=== PATIENT | female | born 1950 | race Caucasian/White ===

== ENCOUNTER 2017-11-11 13:03 | Outpatient (CLI) | payer MEDICARE, BC ==
--- NOTE | 2017-11-11 13:59 | RAD ---
LUMBAR SPINE THREE VIEWS: HISTORY: Postop followup. TECHNIQUE: Lateral views obtained in neutral, flexion, and extension positions. FINDINGS: The lumbar vertebrae maintain height and alignment. There is loss of disk space at L4-L5 and at L5-S 1. There is slight posterior listhesis at L5-S1. There is hypertrophic degenerative spurring, most prominent at L4, L5, and S1. No compression deformity. Mild facet hypertrophy. No significant aguayo ge in alignment with flexion or extension. IMPRESSION: Degenerative changes of the lumbar spine, as described. POS: [facility]
== END 2017-11-11 13:04 | disposition home or self-care (01) ==
LOC: TBSIIMAG 13:03
PROVIDERS: ATTEND Neurological Surgery
DX: M54.5 Low back pain (principal); M43.17 Spondylolisthesis, lumbosacral region; M48.8X7 Other specified spondylopathies, lumbosacral region; M48.8X6 Other specified spondylopathies, lumbar region
CPT/HCPCS: 72100

== ENCOUNTER 2017-12-09 11:01 | Day surgery (SDC) | payer MEDICARE, BC ==
[2017-12-07 10:50] VITALS: BMI 30.2
--- NOTE | 2017-12-08 13:54 | HP ---
CHIEF COMPLAINT: Lumbar back pain. HISTORY OF PRESENT ILLNESS: This is a 67-year-old female who reports to our office after a 5-year hi atus for reevaluation of lumbar back pain. The patient states that after we saw her her symptoms imp roved with injections and medications. About 8 months ago she was able to go off all of her medicati ons and she was doing well. About 3 weeks ago, she was changing her sheets and felt a twinge and sin ce then she has just felt worse and worse. She says that the pain in her lumbar back radiates into h er right glute down the back of her leg and the lateral lower extremity. The patient states that the re is numbness and tingling in the same distribution. The patient has seen Pain Management and she h as been on a Medrol Dosepak and that only helped for a few days. She has also been taking hydrocodon e. The MRI was very painful and she was in the ER last , which they gave her more steroids w ithout much benefit. The patient denies any bowel or bladder dysfunction. Her pain is 9/10. REVIEW OF SYSTEMS: Ten point review of systems has been completed and is negative other than stated above in the HPI. PAST MEDICAL HISTORY: Migraines, hypertension, gout, leg pain, anxiety, allergies, and hyperlipidemi a. PAST SURGICAL HISTORY: Tubal in 1974, hysterectomy in 1986, right knee scope in 1999. FAMILY HISTORY: Father is , had cardiovascular disease and a stroke. Mother is , phani ng cancer, nonsmoker with hypertension. Children are alive. SOCIAL HISTORY: The patient is a nonsmoker. She is with 2 children. She is a retired seams tress and occasionally consumes alcohol. MEDICATIONS: Nortriptyline, propranolol, amlodipine, hydrocodone. ALLERGIES: VICODIN gives her nightmares. PHYSICAL EXAMINATION: CONSTITUTIONAL: Well-appearing, well-nourished, alert. NEUROLOGICAL: Mental status; oriented to time, place, person. Normal attention span and concentrati on. Speech is spontaneous and fluent. Comprehension is intact. Content is appropriate. Normal fun d of knowledge. Cranial nerves: Pupils equal, round, reactive to light. Extraocular movements inta ct. Hearing is intact. MOTOR EXAM: Muscle strength is normal in lower extremities. Muscle tone and bulk normal in lower ex tremities, 5/5 bilateral strength in IP, KE, KF, DS, EHL, 4+/5 in the right plantar flexion, S1 radic ulopathy, positive single leg raise on the right, rotation of bilateral hips normal. Deep tendon ref lexes 2+ bilateral, 1+ ankle bilateral. SENSORY: Light touch intact. GAIT AND STATION: Sit to stand, slow normal gait. RESPIRATORY: Normal work of breathing on room air. CARDIOVASCULAR: Regular rate and rhythm. Normal S1, S2. SKIN: No rashes or lesions on exposed skin. PSYCHIATRIC: Normal mood and affect. IMAGING: Lumbar MRI L3 through L4 spinal stenosis at L4-L5 through S1 right herniated nucleus pulpos us. ASSESSMENT: Lumbar back pain, lumbar radiculopathy and herniated nucleus pulposus, lumbar. PLAN: Dr. Head has offered a microdiskectomy at L5-S1. We have obtained consent. We have disc ussed the indications, risks, benefits, alternatives and expected results from surgery. The risks di scussed included, but were not limited to bleeding, infection, CSF leak, nerve damage, weakness, inco ntinence, cauda equina injury, arachnoiditis, paralysis, ventilator dependence, wheelchair dependence , loss of vision, cardiopulmonary complications of anesthesia or . Long-term complications disc ussed included, but were not limited to degradation of surrounding disks and the need for further agustina herman. The patient states that she understands the risks of surgery and is willing to move forward.
[2017-12-09] MEDS ORDERED: Ondansetron HCl/PF 4 MG/2 ML Vial ONE (11:15)
[2017-12-09] MEDS ORDERED: PHENYLEPHRINE-NS 100 MCG/ML 10 ML SYRINGE ONE (11:15)
[2017-12-09] MEDS ORDERED: Lidocaine 1% PF 5 ML VIAL ONE (11:15)
[2017-12-09] MEDS ORDERED: Ketorolac Tromethamine 30 MG/ML VIAL ONE (11:15)
[2017-12-09] MEDS ORDERED: PROPOFOL 200 MG/20 ML VIAL ONE (11:15)
[2017-12-09] MEDS ORDERED: Glycopyrrolate 0.2 MG/ML 5 ML SYRINGE ONE (11:15)
[2017-12-09] MEDS ORDERED: Dexamethasone 20 MG/5 ML VIAL ONE (11:15)
[2017-12-09] MEDS ORDERED: ePHEDrine/0.9% NaCl/PF SYRINGE 50 mg/10 ml ONE (11:15)
[2017-12-09] MEDS ORDERED: Thrombin 5000 UNITS/5 ML VIAL ONE (14:08)
[2017-12-09] MEDS ORDERED: Sodium Chloride 0.9% 10 ML ONE (14:08)
[2017-12-09] MEDS ORDERED: Bupivacaine HCl 0.5%/Epinephrine 1:200,000/PF 30 ml Vial ONE (14:08)
[2017-12-09] MEDS ORDERED: CEFAZOLIN/Water 2 GM/20 ML SYRINGE ONE ×2 (14:10→18:57)
[2017-12-09] MEDS ORDERED: Midazolam HCl 2 mg/2 ml Vial ONE (14:12)
[2017-12-09] MEDS ORDERED: Fentanyl 100 MCG/2 ML VIAL ONE ×2 (15:19→17:37)
[2017-12-09] MEDS ORDERED: SUGAMMADEX SODIUM 500 MG/5 ML VIAL ONE (17:07)
--- NOTE | 2017-12-09 20:32 | OP ---
DATE OF PROCEDURE: 12/09/2017 NEUROSURGERY OPERATIVE NOTE SURGEON: Phillip Head M.D. OUTREACH ASSISTANT: Dotty Quinonez PA-C. PREOPERATIVE INDICATION: Treat pain, prevent neurological deterioration. PREOPERATIVE DIAGNOSES: Intervertebral disk herniation L5-S1 with bilateral lateral recess stenosis and right greater than left S1 radiculopathy. POSTOPERATIVE DIAGNOSES: Intervertebral disk herniation L5-S1 with bilateral lateral recess stenosis and right greater than left S1 radiculopathy. OPERATIVE PROCEDURE: Decompressive laminectomy, medial facetectomy, foraminotomy, right-sided microd iskectomy, all at L5-S1. PREOPERATIVE MEDICATION: Ancef 2 grams IV. DRAIN NUMBER: Zero. DRAIN TYPE: None. OPERATIVE DICTATION: The patient was brought to the operating room. General endotracheal anesthesia was induced. The patient was positioned on the operating table with her chest and hips supported by gel-filled chest rolls. A lateral fluoro radiograph was used to plan our incision. The lumbar skin was sterilely prepped and draped. We opened our incision with a 10 blade knife and controlled bleed ing with bipolar and monopolar cautery. We used monopolar cautery to dissect through subcutaneous ti ssues to the thoracodorsal fascia. We incised the fascia in the midline and reflected the paraspinal muscles off the spinous process and lamina of L5 and S1. A self-retaining retractor was placed and lateral fluoro radiograph confirmed the level upon which we were operating. We then removed the spin ous process of L5 and using Kerrison rongeurs, fashioned a laminectomy at L5-S1. We widened our lami nectomy defect by performing medial facetectomies. We identified the common thecal sac and the S1 ne rve roots and decompressed those nerve roots in the lateral recess. We performed foraminotomies over the exiting S1 nerve roots as well. We then brought the operative microscope in the field. Under microscopic magnification using microsurgical techniques, we carefully retracted the nerve root medially on the right side. Under the S1 nerve root, we found the ventral disk herniation. We inci sed the herniated portion of the disk. We removed loose disk fragments with angled curettes and pitu itary rongeurs. At the completion of the diskectomy, the right-sided S1 nerve root was no longer und er any stretch. The left S1 nerve root was well decompressed with our laminectomy. We looked undern eath it and found a small loose disk fragment and removed that. We did not open the annulus or the d isk from the left side. We irrigated copiously with bacitracin irrigation. We infused local anesthe tic in the paraspinal muscles. We closed the wound in anatomic layers. We applied a sterile dressin g. This was a clean case and no contamination.
== END 2017-12-09 20:15 | disposition home or self-care (01) ==
LOC: SDC 11:01
PROVIDERS: ATTEND Neurological Surgery
PROC: 01NB0ZZ Release Lumbar Nerve, Open Approach (ICD-10-PCS; principal; 2017-12-09)
PROC: 0SB40ZZ Excision of Lumbosacral Disc, Open Approach (ICD-10-PCS; 2017-12-09)
DX: M48.07 Spinal stenosis, lumbosacral region (principal); M51.17 Intervertebral disc disorders with radiculopathy, lumbosacral region; G43.909 Migraine, unspecified, not intractable, without status migrainosus; I10 Essential (primary) hypertension; M10.9 Gout, unspecified; F41.9 Anxiety disorder, unspecified; E78.5 Hyperlipidemia, unspecified; Z79.82 Long term (current) use of aspirin; Z79.1 Long term (current) use of non-steroidal anti-inflammatories (NSAID); Z79.899 Other long term (current) drug therapy; Z88.5 Allergy status to narcotic agent; Z88.8 Allergy status to other drugs, medicaments and biological substances
CPT/HCPCS: 76001; 96374; 96375; A4216; J0670; J1100; J1885; J2001; J2250; J2405; J2704; J3010; J3370; J3490

== ENCOUNTER 2019-10-12 10:07 | Outpatient (CLI) | payer MEDICARE, BC ==
--- NOTE | 2019-10-12 11:43 | RAD ---
LUMBAR SPINE 5 VIEWS: HISTORY: Intervertebral disk disorder with radiculopathy, back pain radiating down the right leg to foot. COMPARISON: 02/09/2013. FINDINGS: Exam includes flexion and extension standing lateral views. Disk space narrowing, particularly at L4 -L5 and L5-S1. No evidence for abnormal translation between flexion and extension. Minimal generali zed dextroscoliosis of the lumbar vertebral column and levoscoliosis of the upper lumbar lower thorac ic vertebral column. IMPRESSION: Lumbar spondylosis with disk-osteophytosis and disk space narrowing, particularly at L4-L5 and L5-S1. No abnormal translation between flexion and extension. Scoliotic changes as above. POS: [facility]
== END 2019-10-12 10:08 | disposition home or self-care (01) ==
LOC: TBSIIMAG 10:07
PROVIDERS: ATTEND Physician Assistant Medical
DX: M51.16 Intervertebral disc disorders with radiculopathy, lumbar region (principal); M47.26 Other spondylosis with radiculopathy, lumbar region; M51.37 Other intervertebral disc degeneration, lumbosacral region; M25.78 Osteophyte, vertebrae; M41.9 Scoliosis, unspecified
CPT/HCPCS: 72120

== ENCOUNTER 2019-10-30 14:16 | Outpatient (CLI) | payer MEDICARE, BC ==
--- NOTE | 2019-10-30 16:20 | MRI ---
LUMBAR SPINE MRI WITHOUT IV CONTRAST: HISTORY: Radiculopathy, low back pain, right leg pain, difficult walking long distances, prior surgery. FINDINGS: Conus medullaris region appears unremarkable. There are generalized disk desiccation changes and lig ament and facet hypertrophic changes. Minimal type I end plate changes at L5-S1 with some mild marrow edema. T12-L1 disk: No significant stenosis. L1-L2 disk: Very slight thinning of the lateral recesses. L2-L3 disk: Mild central canal and moderate lateral recess stenosis with associated annular fissure and mild to moderate bilateral foraminal stenosis. L3-L4 disk: Severe central canal and lateral recess stenosis and moderate bilateral foraminal stenos is. L4-L5 disk: Mild central canal and moderate lateral recess stenosis and bilateral foraminal stenosis , worse on the left side. L5-S1 disk: Postoperative change at this level. Prominent central protrusion with some mild bilater al recess narrowing and severe bilateral foraminal stenosis worse on the left side. IMPRESSION: Variable severity multilevel canal, lateral recess, and foraminal stenosis. Postoperative changes at L5-S1. Minimal type I end plate changes at L5-S1. POS: [facility]
== END 2019-10-30 14:17 | disposition home or self-care (01) ==
LOC: EDBD → TBSIIMAG 14:16
PROVIDERS: ATTEND Neurological Surgery
DX: M51.16 Intervertebral disc disorders with radiculopathy, lumbar region (principal); M48.062 Spinal stenosis, lumbar region with neurogenic claudication; M48.07 Spinal stenosis, lumbosacral region
CPT/HCPCS: 72148

== ENCOUNTER 2020-03-13 06:39 | Outpatient (CLI) | payer MEDICARE, BC ==
[2020-03-13 14:03] LABS: Hemoglobin 13.6 g/dL (12.0-16.0); Mean Corpuscular HGB CONC 31.7 G/DL (32.0-36.0); Mean Corpuscular Hemoglobin 29.2 PG (27.0-33.0); Mean Corpuscular Volume 92.3 fl (80.0-100.0); Mean Platelet Volume 10.5 fl (7.4-10.4); Platelet Count 273 10x3/uL (130-400); RBC Distribution Width 13.2 % (11.5-14.5); Red Blood Cell (RBC) Count 4.65 10x6/uL (3.90-5.20); White Blood Cell (WBC) Count 7.5 10x3/uL (4.5-11.0)
[2020-03-13 14:32] LABS: PTT 28.7 sec (22.0-33.0); Prothrombin Time 10.3 sec (9.5-12.1)
[2020-03-13 22:14] LABS: SARS-CoV-2 MS2 Positive; SARS-CoV-2 N Gene Negative; SARS-CoV-2 S Gene Negative; SARS-CoV-2 by NAA Not Detected (NotDetected); SARS-CoV-2 orf1ab Negative
== END 2020-03-13 06:40 | disposition home or self-care (01) ==
LOC: LABBT 06:39
PROVIDERS: ATTEND Neurological Surgery
DX: Z01.812 Encounter for preprocedural laboratory examination (principal); M48.061 Spinal stenosis, lumbar region without neurogenic claudication; Z20.828 Contact with and (suspected) exposure to other viral communicable diseases
CPT/HCPCS: 85027; 85610; 85730; U0003; 87635

== ENCOUNTER 2020-03-13 12:00 | Inpatient (IN) | payer MEDICARE, BC ==
--- NOTE | 2020-03-17 13:26 | HP ---
REASON FOR H AND P: Surgery on 03/18/2020, case #[id number]. HISTORY OF PRESENT ILLNESS: Ms. Lira is a 69-year-old female with a chief complaint of lower back and right leg pain. She had a right microdiskectomy at L5-S1 on 12/09/2017. She developed new radiculopathy pain in her right leg about one year ago radiating into her right gluteal muscle, hamstring, lateral calf and anterior foot. She could only walk about 50 feet before she has to offload. She has tried medications, physical therapy and spinal epidural injections with no lasting relief. Denies bladder or bowel dysfunction. REVIEW OF SYSTEMS: CONSTITUTIONAL: Denies fever or chills. ENT: Denies change in vision or hearing. CARDIAC: Denies chest pain, shortness of breath, or diaphoresis. PULMONARY: Denies shortness of breath, cough, or hemoptysis. GI: Denies fecal incontinence, abdominal pain, nausea, vomiting, diarrhea, change in stool formation and consistency. : Denies urinary incontinence, trouble with urination, frequency of urination, bloody urine. SKIN: Denies skin rash, bruising, bleeding, skin masses. MUSCULOSKELETAL: As per history of present illness. NEUROLOGIC: As per history of present illness. PSYCHOLOGIC: Denies anxiety, depression, behavior changes. MEDICAL HISTORY: Migraines, hypertension, gout, knee pain, arthritis. SURGICAL HISTORY: Tubal ligation in 1974, hysterectomy in 1986, right cartilage knee surgery in 1999, right L5-S1 microdiskectomy in 2018. HOSPITALIZATIONS: As above surgeries. FAMILY HISTORY: Father , 66 years old, CVA diagnosed with stroke. Mother , lung cancer, nonsmoker. SOCIAL HISTORY: Nonsmoker. Occasional alcohol use. Denies illicit drug use. MEDICATIONS: 1. Tramadol 50 mg. 2. Zanaflex 4 mg. 3. Amlodipine 10 mg. 4. Celebrex 200 mg. 5. Nortriptyline 50 mg. 6. Gabapentin 300 mg. 7. Propranolol 120 mg. ALLERGIES: VICODIN, SIDE-EFFECT NIGHTMARES. PHYSICAL EXAMINATION: VITAL SIGNS: Weight is 185 pounds, height is 64 inches, BMI is 31.75. HEENT: Pupils are equal. Extraocular movements are intact. NECK: Soft, supple. No masses are noted. Range of motion is intact and nonpainful. NEUROLOGIC: Awake, alert, and oriented x3. Memory, attention, fund of knowledge normal. Cranial nerves grossly intact. Gait and station are normal. Motor exam: Mild EHL weakness on the right. There is normal strength in the iliopsoas, quadriceps, hamstrings, anterior tib, gastrocnemius and toe flexors. Sensory exam; slightly decreased, right L5 and S1. IMAGING STUDIES: MRI of the lumbar spine, stenosis at L3-4 and L4-5. Severe foraminal collapse at L5 pedicle on top of the sacrum. X-ray of the lumbar spine, flexion-extension stable. ASSESSMENT: 1. Spinal stenosis of lumbar region with neurogenic claudication. 2. Intervertebral disk disorder with radiculopathy of the lumbar region. PLAN: 1. Redo laminectomy at L3-S1, TLIF at L5-S1. 2. Anesthesia clearance. 3. Preop lab; CBC, PT, PTT, COVID-19. INFORMED CONSENT: We discussed the indications, risks, benefits, alternatives, and expected results from surgery. The risks discussed included, but were not limited to, bleeding, infection, CSF leak, nerve damage, weakness, incontinence, cauda equina injury, arachnoiditis, paralysis, ventilator dependency, wheelchair dependency, loss of vision, hardware misplacement, cardiopulmonary complications of anesthesia or . Long-term complications discussed included, but were not limited to, degeneration of surrounding disk and future surgery. She understands the risks and is willing to proceed. Job ID: [id number] [facility]
[2020-03-18] MEDS ORDERED: EPINEPHrine 1 MG/ML AMP ONE (06:11)
[2020-03-18] MEDS ORDERED: Thrombin 5000 UNITS/5 ML VIAL ONE (06:11)
[2020-03-18] MEDS ORDERED: Bupivacaine PF 0.5% 30 ML VIAL ONE (06:11)
[2020-03-18] MEDS ORDERED: HYDROmorphone 2 MG/ML VIAL ONE (06:45)
[2020-03-18] MEDS ORDERED: Fentanyl 100 MCG/2 ML VIAL ONE (06:45)
[2020-03-18] MEDS ORDERED: Midazolam HCl 2 mg/2 ml Vial ONE (06:45)
[2020-03-18] MEDS ORDERED: Ketamine 50 MG/ML (10ML VIAL) ONE (06:46)
[2020-03-18] MEDS ORDERED: Phenylephrine 10 MG/ML VIAL ONE (08:26)
[2020-03-18] MEDS ORDERED: Ondansetron PF 4 MG/2 ML Vial ONE ×2 (11:56→14:05)
[2020-03-18] MEDS ORDERED: Promethazine 25 MG TAB PO PRN (12:29)
[2020-03-18] MEDS ORDERED: tiZANidine HCl 4 MG TAB PO PRN (12:29)
[2020-03-18] MEDS ORDERED: diphenhydrAMINE 50 MG/ML VIAL IVP PRN (12:29)
[2020-03-18] MEDS ORDERED: Scopolamine 1.5 mg/72 hour Patch TD PRN (12:29)
[2020-03-18] MEDS ORDERED: Promethazine HCl 25 MG/ML VIAL IM PRN (12:29)
[2020-03-18] MEDS ORDERED: Milk Of Magnesia 30 ML UDCUP PO PRN (12:29)
[2020-03-18] MEDS ORDERED: PACU-Morphine 4MG/ML VIAL SLOW IVP PRN (12:40)
[2020-03-18] MEDS ORDERED: HYDROmorphone 2 MG/ML VIAL SLOW IVP PRN (12:40)
[2020-03-18] MEDS ORDERED: Ondansetron HCl/PF 4 MG/2 ML Vial IVP PRN (12:40)
[2020-03-18] MEDS ORDERED: Morphine Sulfate 2 MG/ML SYRINGE SLOW IVP PRN (12:40)
[2020-03-18] MEDS ORDERED: Morphine 4 MG/ML VIAL ONE (12:48)
[2020-03-18] MEDS ORDERED: Morphine 2 MG/ML VIAL ONE ×3 (12:56→13:17)
[2020-03-18] MEDS ORDERED: Dexamethasone 20 MG/5 ML VIAL ONE (14:05)
[2020-03-18] MEDS ORDERED: ePHEDrine 50 MG/ML VIAL ONE (14:05)
[2020-03-18] MEDS ORDERED: PHENYLEPHRINE-NS 100 MCG/ML 10 ML SYRINGE ONE (14:05)
[2020-03-18] MEDS ORDERED: Rocuronium Bromide 10 MG/ML (10ML VIAL) ONE (14:05)
[2020-03-18] MEDS ORDERED: Glycopyrrolate 0.2 MG/ML 5 ML SYRINGE ONE (14:05)
[2020-03-18] MEDS ORDERED: diphenhydrAMINE 50 MG/ML VIAL ONE (14:05)
[2020-03-18] MEDS ORDERED: Ketorolac Tromethamine 30 MG/ML VIAL ONE (14:05)
[2020-03-18] MEDS ORDERED: PROPOFOL 200 MG/20 ML VIAL ONE (14:05)
[2020-03-18 14:36] VITALS: BMI 30.9
[2020-03-18] MEDS: CEFAZOLIN 2 GM in Premix Bag 1 BAG IVPB SCH ×2 (15:27→22:08)
[2020-03-18] MEDS: Sodium Chloride 0.9% 1,000 ML IV SCH (15:28)
[2020-03-18] MEDS: Pregabalin 50 MG CAP PO SCH ×2 (15:29→20:13)
[2020-03-18] MEDS: Morphine 2 MG/ML VIAL SLOW IVP PRN ×2 (16:52→22:05)
--- NOTE | 2020-03-18 17:33 | OP ---
DATE OF PROCEDURE: 03/18/2020 MANAGER LINE: Severo Burgos PA-C. PREOPERATIVE INDICATION: Treat pain and prevent neurological deterioration. PREOPERATIVE DIAGNOSES: Multilevel lumbar stenosis with neurogenic claudication, L5-S1 foraminal stenosis from collapse of the intervertebral disk with radiculopathy. POSTOPERATIVE DIAGNOSES: Multilevel lumbar stenosis with neurogenic claudication, L5-S1 foraminal stenosis from collapse of the intervertebral disk with radiculopathy. OPERATIVE PROCEDURES: 1. Decompressive laminectomy with medial facetectomy and foraminotomy at L3-L4 and L4-L5, and a redo decompressive laminectomy with facetectomy and foraminotomy at L5-S1. 2. Transforaminal lumbar interbody arthrodesis, L5-S1. 3. Placement of intervertebral biomechanical device, L5-S1. 4. Pedicle screw and lewis instrumentation, L5-S1. 5. Posterolateral arthrodesis, L5-S1. 6. Local morselized autograft, morselized allograft. 7. Operating microscope. 8. Repair of dura. PREOPERATIVE MEDICATION: Ancef 2 g IV. DRAIN NUMBER: Zero. DRAIN TYPE: None. DESCRIPTION OF PROCEDURE: The patient was brought to the operating room. General endotracheal anesthesia was induced. The patient was carefully positioned on the Davin frame with the appropriate padding for the chest and hips. A lateral fluoro radiograph was used to plan our incision. The lumbar skin was sterilely prepped and draped. We opened our midline incision and incorporated the previous incision into it. We controlled bleeding with bipolar cautery. We used monopolar cautery to dissect through the subcutaneous tissues to the thoracodorsal fascia. We incised the fascia in the midline and reflected the paraspinal muscles off the spinous process and the lamina of L3, L4, and S1. We dissected through scar tissue to the facet joints at L4-L5 and L5-S1, leaving the scar tissue over the dura in the midline. A lateral fluoro radiograph confirmed the levels upon which we were operating. We began our operation with our decompression of the newly operated segments. Adson rongeurs were used to remove the spinous processes of L3 and L4. Using a Kerrison rongeur, we fashioned a laminectomy from the pedicles of L3 to below L4. We widened our laminectomy defect by performing medial facetectomies and we performed foraminotomies over the exiting nerve roots. At L5-S1, there was significant scar tissue and we brought the operating microscope in the field. Under microscopic magnification using microsurgical techniques, we carefully peeled scar tissue from the undersurface of the remnant of the lamina of L5 and the lateral aspect of the spinal canal. Kerrison rongeurs were used to fashion a laminectomy that was wider than the previous laminectomy and we performed foraminotomies over the exiting nerve roots. On the right side, the remnant of the lamina at the top of L5 was firmly adherent to the dura. The two had been incorporated into one solid scar tissue mass. We had to drill around the lateral aspect of the bone and peel it medially. There was a small dural defect that was repaired microsurgically. Using 6-0 Prolene sutures and micro instruments, we microsurgically repaired the dura at L5 on the right. We then continued with our decompression. Within the foramen on the right at L5-S1, the pedicle of L5 was compressing the nerve root onto the intervertebral disk at L5-S1 due to a lack of vertical height. We incised the disk and removed disk contents using curettes and rongeurs. In order to perform a TLIF there, we removed the entire facet joint at L5-S1 on the right. This gave us access through the foramen into the intervertebral disk without having to mobilize the nerve or the common thecal sac. Used rectangular bone rasps to measure the height of the interspace to 9 mm. A 9 mm PEEK intervertebral graft was brought into the field. This was loaded with our demineralized bone matrix and morselized autograft and advanced into the interspace under radiographic guidance to the appropriate depth. We turned our attention to pedicle screw instrumentation. The operating microscope was taken out of the field. Using bony anatomic landmarks, palpation of the medial portion of the pedicles, and a lateral fluoro radiograph as our guide, we chose entry points for pedicle screws at L5 and S1 bilaterally. We drilled out our entry points and used a bone awl to advance through the pedicles into the vertebral bodies. Using a threaded tap, we tapped each trajectory. We probed the trajectories and found them completely encased in bone. We placed 6.5 mm diameter screws into the pedicles of L5 and S1 bilaterally. A 360-degree image set was generated with our isocentric C-arm. This confirmed adequate positioning of our pedicle screw instrumentation. We then irrigated with bacitracin irrigation. We freed soft tissue over the sacral ala and the transverse processes of L5 bilaterally. We decorticated this bone and left demineralized bone matrix, morselized autograft over the decorticated bone in the posterolateral recess as our fusion substrate. Rods were brought down into the screw heads and we tightened caps over the rods. Using the torque/counter-torque mechanism, we ensured adequate tightness. A gentle compressive force was placed across the interspace to keep our interbody graft in place. We irrigated the center of the wound once again with bacitracin irrigation. We infused local anesthetic in the paraspinal muscles. We reinforced our dural closure with DuraSeal tissue sealant. We treated the wound with vancomycin powder and we closed the wound in anatomical layers. This was a clean case, no contamination. Job ID: [id number]
[2020-03-18] MEDS: Mag-Al 1200 mg/1200 mg/30 ML UDCUP PO PRN (22:08)
[2020-03-18] MEDS: Ketorolac Tromethamine 0.5% Ophth Soln 3 ml Bottle L EYE SCH (22:45)
[2020-03-18] MEDS: Nortriptyline HCl 25 MG CAP PO SCH (23:33)
[2020-03-19] MEDS: HYDROcodone/Acetaminophen 10/325 mg Tablet PO PRN ×4 (01:32→19:10)
[2020-03-19] MEDS: Sodium Chloride 0.9% 1,000 ML IV SCH ×3 (02:53→21:57)
[2020-03-19] MEDS: traMADol HCl 50 MG TAB PO PRN ×4 (03:29→22:16)
[2020-03-19] MEDS: Ketorolac Tromethamine 0.5% Ophth Soln 3 ml Bottle L EYE SCH ×3 (03:32→22:16)
[2020-03-19] MEDS ORDERED: Docusate 100 MG CAP PO PRN (06:35)
[2020-03-19] MEDS ORDERED: Simethicone Chewable 80 MG TAB PO PRN (06:53)
--- NOTE | 2020-03-19 06:54 | PRG ---
DATE OF SERVICE: 03/19/2020 I saw Ms. Lira in her hospital room this morning. She is one day out from a lumbar decompression fusion for recurrent stenosis, neurogenic claudication, and collapse of the foramen at L5-S1. Since surgery, her legs feel better. We kept her flat overnight. Among the electronically recorded vital signs, I do not see any fevers. Other vital signs have been stable. Her legs are working well. Ms. Lira is anxious to mobilize today and she can start to get up. She complained of some gas pain and any medication that benefits her would be fine with me for that problem. When she is independent for activities of daily living, we can consider discharge. If she is not safe for activities of daily living after another day or two in the hospital, we will look to inpatient rehabilitation as the disposition. Job ID: [id number]
[2020-03-19] MEDS: Pregabalin 50 MG CAP PO SCH ×3 (10:11→19:32)
[2020-03-19] MEDS: Simethicone Chewable 80 MG TAB PO PRN ×3 (10:11→19:36)
[2020-03-19] MEDS: Amlodipine 10 MG TAB PO SCH (10:12)
[2020-03-19] MEDS: Propranolol HCl LA 60 MG CAP PO SCH (10:12)
[2020-03-19] MEDS: Docusate 100 MG CAP PO SCH (10:12)
[2020-03-19] MEDS: Mag-Al 1200 mg/1200 mg/30 ML UDCUP PO PRN (14:15)
[2020-03-19] MEDS: Nortriptyline HCl 25 MG CAP PO SCH (19:31)
[2020-03-19] MEDS ORDERED: Melatonin 3 MG TAB PO SCH (21:00)
[2020-03-20] MEDS: HYDROcodone/Acetaminophen 10/325 mg Tablet PO PRN ×3 (01:13→14:08)
[2020-03-20] MEDS: Ketorolac Tromethamine 0.5% Ophth Soln 3 ml Bottle L EYE SCH ×2 (07:05→14:09)
[2020-03-20] MEDS: Pregabalin 50 MG CAP PO SCH ×2 (08:04→14:09)
[2020-03-20] MEDS: Amlodipine 10 MG TAB PO SCH (08:04)
[2020-03-20] MEDS: Propranolol HCl LA 60 MG CAP PO SCH (08:04)
[2020-03-20] MEDS: Docusate 100 MG CAP PO SCH (08:04)
--- NOTE | 2020-03-20 08:04 | PRG ---
DATE OF SERVICE: 03/20/2020 I saw Ms. Lira in her hospital room this morning. Yesterday, she did a bit better than expected. By the afternoon, she was walking laps around the entire floor and felt that her radiating leg pain had resolved from her operation. Her back is sore. Overnight, I do not see any fevers recorded. Blood pressures have been between the 100s and 120s. There are no new deficits in her lower extremities. If Ms. Lira continues to do well this morning, she may be ready for discharge this afternoon. If she elects to stay and pursue inpatient rehabilitation, then tomorrow, we can make arrangements for that discharge to happen. Job ID: [id number]
[2020-03-20] MEDS: traMADol HCl 50 MG TAB PO PRN (10:04)
[2020-03-20 11:54] VITALS: BP 107/48; TEMP 97.5
--- NOTE | 2020-03-21 07:27 | PQF ---
CLINICAL DOCUMENTATION CLARIFICATION FORM: Dear : Vu Head Date / Time: 03/21/20726 Please exercise your independent, professional judgment in responding to the clarification form. Clinical indicators are provided on the bottom of this form for your review Please check appropriate box(es): In the description of the operative procedure a Dura defect that was repaired noted by the surgeon. If possible would you please further clarify if this was: [ ] Incidental occurrence inherent in the surgical procedure [ ] Complication of the procedure [ x ] Other [ ] Unable to determine Physician Signature: Date/Time: For continuity of documentation, please document condition throughout progress notes and discharge summary. Thank You. To be completed by CDI/Coding staff for physician review: Present Clinical Indicators - Signs / Symptoms / Labs Results and Location in Medical Record [X] We dissected through scar tissue to L4-L5 and L5-S1, leaving the scar tissue over the dural Operative report 03/18 Dr Head [X] On the right side, the remnant of the lamina of the top of L5 was firmly adherent to the dura Operative report 03/18 Dr Head [X] There was a small dura defect that was repaired microsurgically Operative report 03/18 Dr Head Present Risk Factors Results and Location in Medical Record [X] 69 year-old Female Operative report 03/18 Dr Head [X] Multilevel lumbar stenosis with neurogenic claudication Operative report 03/18 Dr Head [X] L5-S1 foraminal stenosis from collapse of intervertebral disk with radiculopathy Operative report 03/18 Dr Head [X] s/p Arthodesis Operative report 03/18 Dr Head Present Treatments Results and Location in Medical Record [X] Repair of Dural Operative report 03/18 Dr Head CDS/Window Cleaner Signature: Lizbeth Kruegerherberth Phone #: ext [phone] Date/Time: 03/21/2020726 This is a permanent part of the Medical Record [facility]
--- NOTE | 2020-03-21 13:24 | DIS ---
DATE OF ADMISSION: 03/18/2020 DATE OF DISCHARGE: 03/20/2020 HOSPITAL COURSE: Ms. Lira is a 69-year-old female who underwent a lumbar decompression and fusion for recurrent stenosis, neurogenic claudication, and collapse of the foramina of L5-S1. During surgery, her dura was nicked and repaired. We kept her flat overnightFollowing her surgery, she was transitioned to the med/surg floor, where her pain was well controlled with p.o. medications. She is tolerating a regular diet and voiding appropriately. She is otherwise doing well and ambulating easily in the hallways with physical therapy and utilization of a walker. She has been accepted for inpatient rehab, but decided she would rather go home. PHYSICAL EXAMINATION: On exam today, she is awake, alert, in no acute distress. She has free active range of motion of all her extremities. No focal motor weakness. No reflex asymmetry. Her incision is clean, dry, and intact. PLAN: We will plan to dismiss Ms. Lira home today. I have discussed home care precautions with her. CONDITION ON DISCHARGE: The patient had no emergencies. Condition was stable for discharge. MEDICATIONS: Home going medications were reviewed. FOLLOWUP: Followup arrangements made by our breastfeeding program coordinator in the clinic and call to the patient. ACTIVITIES: Restrictions were reviewed in person. Wound care showers are acceptable. Patient should pat the incision dry, but not submerge it under the surface of a body water for 1 month. Job ID: [id number] [facility]
== END 2020-03-20 15:42 | disposition home or self-care (01) | DRG 454 ==
LOC: SURG A 03-18 05:33
PROVIDERS: ADMIT Neurological Surgery; ATTEND Neurological Surgery
PROC: 0SG30AJ Fusion of Lumbosacral Joint with Interbody Fusion Device, Posterior Approach, Anterior Column, Open Approach (ICD-10-PCS; principal; 2020-03-18)
PROC: 0SG3071 Fusion of Lumbosacral Joint with Autologous Tissue Substitute, Posterior Approach, Posterior Column, Open Approach (ICD-10-PCS; 2020-03-18)
PROC: 0SB40ZZ Excision of Lumbosacral Disc, Open Approach (ICD-10-PCS; 2020-03-18)
PROC: 01NB0ZZ Release Lumbar Nerve, Open Approach (ICD-10-PCS; 2020-03-18)
PROC: 01NR0ZZ Release Sacral Nerve, Open Approach (ICD-10-PCS; 2020-03-18)
PROC: 00QT0ZZ Repair Spinal Meninges, Open Approach (ICD-10-PCS; 2020-03-18)
DX: M48.062 Spinal stenosis, lumbar region with neurogenic claudication (principal); G96.11 Dural tear; M51.17 Intervertebral disc disorders with radiculopathy, lumbosacral region; I10 Essential (primary) hypertension; M10.9 Gout, unspecified; G43.909 Migraine, unspecified, not intractable, without status migrainosus; M19.90 Unspecified osteoarthritis, unspecified site; M51.16 Intervertebral disc disorders with radiculopathy, lumbar region; Z20.828 Contact with and (suspected) exposure to other viral communicable diseases; Z98.51 Tubal ligation status; Z90.710 Acquired absence of both cervix and uterus; Z79.899 Other long term (current) drug therapy; Z88.8 Allergy status to other drugs, medicaments and biological substances
CPT/HCPCS: 36415; 76000; 86850; 86900; 86901; C1713; C1768; J0171; J0690; J1100; J1170; J1200; J1885; J2250; J2270; J2370; J2405; J2704; J3010; J3370; J3490; S0020

== ENCOUNTER 2020-05-14 10:24 | Outpatient (CLI) | payer MEDICARE, BC ==
--- NOTE | 2020-05-14 10:49 | RAD ---
Exam: 2 views lumbar spine COMPARISON: 11/11/2017 HISTORY: Lumbar stenosis. Postoperative exam FINDINGS: Interval laminectomy at L3, L4 and L5. Interval placement of posterior fusion changes trans pedicular screws at L5 and S1. No perihardware lucency. L5-S1 disc prosthesis. Stable degenerative disc disease with loss of disc space height, vacuum disc phenomenon, endplate scl erosis and osteophyte formation at L4-L5. Stable facet hypertrophy at L3, L4 and L5. On the AP projection, no malalignment. Visualized sacrum and bony pelvis are intact IMPRESSION: 1. Multiple decompressive laminectomies as described above. 2. Fusion changes at L5-S1 3. Stable severe degenerative disc disease at L4-L5.
== END 2020-05-14 10:25 | disposition home or self-care (01) ==
LOC: TBSIIMAG 10:24
PROVIDERS: ATTEND Neurological Surgery
DX: M48.061 Spinal stenosis, lumbar region without neurogenic claudication (principal); M51.36 Other intervertebral disc degeneration, lumbar region; Z98.1 Arthrodesis status; Z98.890 Other specified postprocedural states
CPT/HCPCS: 72100